=== PATIENT | female | born 1995 | race Caucasian/White ===

== ENCOUNTER 2024-10-06 20:50 | Emergency (ER) | payer SELFPAY ==
--- NOTE | ~2024-10-06 | XR_ITS ---
CLINICAL HISTORY: swelling, pain 2 view right forearm Comparison: None Findings: No acute fractures or dislocations. No cortical destruction of the bone. No radiopaque foreign body. IMPRESSION: 1. No acute fracture or dislocation injury identified at the right forearm. This document has been electronically signed by: Fredrick Aguirre MD on 10/06/2024 21:47:16
[2024-10-06 20:52] VITALS: BP 133/82; PULSE 83; RESP 16; TEMP 36.9; O2SAT 100; BMI 26.6
--- NOTE | 2024-10-06 20:57 | ED_ITS ---
HPI - General Adult General Chief complaint: Extremity Problem Stated complaint: right arm feels swollen/agusto Related Data Allergies Allergy/AdvReac Type Severity Reaction Status Date / Time Penicillins Allergy Hives Verified 10/06/24 20:55 [facility] Social History Social History Advance Directives: No Advance Directives Information Provided: No Do you have a plan to hurt others: No Plan Physical Exam ED Vital Signs: Vital Signs - 24 hr 10/06/24 20:52 Temperature 98.4 F Pulse Rate 83 Respiratory Rate 16 Blood Pressure 133/82 Pulse Oximetry 100 Oxygen Delivery Method Room Air BMI result Body Mass Index 26.6 Course Course Course Narrative: RME performed by Kamille Rosales PA-C. Patient is a 29 year old assigned female at presenting to the emergency department with right forearm swelling. Patient states she feels as though her right forearm is swollen. Patient's limited physical exam performed in triage showed a non-toxic indivi dual with a normal appearing right forearm. Detailed physical exam and review of systems are deferred to the software quality specialist. Imaging ordered. Patient placed back in the waiting room pending room availability and results. Patient left without completing treatment. Patient left the department before myself or any of the other emergency department clinicians could explain to or review with the patient; physical exam findings, test results, need or lack there of for additional testing, need or lack there of for a procedure to be performed, need or lack there of for hospital admission / transfer, need or lack there of for prescription medication, treatment options, or a treatment plan. Discharge Plan Discharge Clinical Impression: Right forearm pain Patient Disposition: Left W/O Completing Treatment Discharge Date/Time: 10/06/24 23:41
--- OUTSIDE RECORDS SUMMARY | 2024-10-06 23:38 | XMS_ITS | Data Portability ---
Author Organization [facility] Dick [facility] [employer], svmg_admin Address [address] [place] [id number] Assessment No assessment recorded. Plan of Treatment Reminders Order Date Submit Date Provider Last Modified By Organization Details Last Modified Time Details Appointments None recorded. Lab urinalysis complete, reflex culture 2018 019 [email or web address] [facility] (Lab), [address] [place] [address], [phone], 9 12:36:57 HbA1c (hemoglobin A1c), blood 2018 019 MICHAEL [facility] (Lab), [address] [place] [address], [phone], 9 14:58:31 lipid panel, serum 2018 019 astrub Not available 0 12:51:16 CMP, serum or plasma 2018 019 astrub Not available 0 12:51:16 CBC 2018 019 astrub Not available 9 10:45:14 TSH, serum, reflex free T4 2018 019 astrub Not available 0 12:51:16 HIV (1+2) antibodies, EIA, serum, reflex HIV-1 western blot (WB) 2018 019 astrub Not available 9 10:45:14 hepatitis C virus Ab, serum 2018 019 astrub Not available 9 10:45:15 CT + NG RNA, urine 2018 019 astrub Not available 9 10:45:15 vitamin D, 25-hydroxy, total, serum 2018 019 astrub Not available 0 12:51:16 Referral gynecologis t referral 2018 019 [email or web address] Not available 0 13:10:55 Procedures None recorded. Surgeries None recorded. Imaging US, duplex, venous, upper extremity, unilateral 2018 019 [facility] Radiology (Imaging Scheduling), [address] [facility], Radiology [address], [place], [address], 9 16:10:14 Medication Orders Aviane 0.1 mg-20 mcg tablet 2018 019 [email or web address] [facility], [address], [place], [id number], 9 11:40:15 albuterol sulfate 90 mcg/actuati on breath activated powder inhaler 2018 019 [facility], [address], [place], [id number], 9 11:40:10 fluticasone propionate 50 mcg/actuati on nasal spray,suspe nsion 2018 019 [email or web address] [facility], [address], [place], [id number], 9 10:50:22 Junel FE / (28) 1 mg-20 mcg (21)/75 mg (7) tablet 2018 019 [email or web address] [facility]76159, [address], [place], [id number], 9 10:50:31 bupropion HCl SR 150 mg tablet,12 hr sustained-r elease 2018 019 [email or web address] [facility] #80776, [address] [facility], [place], [place], [id number], 9 11:12:15 Patient TargetsNo targets recorded. Patient Instructions Encounter Date Encounter Id Patient Instructions Last Modified By Organization Details Last Modified Time 07/13/2018 [id number] A healthy lifestyle: care instructions dderderian Not available 07/15/2018 13:02:49 learning about control: combination pills dderderian Not available 07/13/2018 13:39:21 Well Visit, Ages 18 to 65: Care Instructions dderderian Not available 07/13/2018 13:39:20 safer sex: care instructions dderderian Not available 07/13/2018 13:45:37 Quitting Tobacco: Care Instructions dderderian Not available 07/13/2018 13:39:20 Bupropion daily for three days then increase to twice a day; Set an absolute quit date of July 28; Start a vacation fund with the cigarette money; [facility] ; Fasting labs; Please continue to eat healthy and exercise regularly; drink at least 60 ounces of water daily; Call with any questions or concerns dderderian Not available 07/15/2018 12:57:58 09/07/2018 [id number] Quitting Tobacco: Care Instructions dderderian Not available 09/07/2018 11:38:32 controlling your asthma: care instructions dderderian Not available 09/07/2018 11:38:32 learning about asthma dderderian Not available 09/07/2018 11:38:32 When You Want to Lose Weight: Care Instructions dderderian Not available 09/07/2018 11:38:32 Acute Sinusitis: Care Instructions dderderian Not available 09/07/2018 11:38:32 Start Mucinex (generic) and steroid nasal spray; claritin 10 mg daily as needed for allergy symptoms; Keep up the good work with smoking cessation; Keep working with your marine mammal trainer; Please continue to eat healthy and exercise regularly; drink at least 60 ounces of water daily; Call with any questions or concerns dderderian Not available 09/09/2018 00:52:16 12/08/2018 [id number] frequent urination: care instructions dderderian Not available 12/08/2018 11:39:11 learning about control: combination pills dderderian Not available 12/08/2018 11:39:11 Lab ordered today and from 07/13/18; urine when you do not have your period; Please continue to eat healthy and exercise regularly; drink at least 60 ounces of water daily; Call with any questions or concerns dderderian Not available 12/10/2018 22:41:40 01/15/2019 [id number] Quitting Tobacco: Care Instructions dderderian Not available 01/15/2019 11:52:10 ultrasound today of your right arm dderderian Not available 01/15/2019 11:53:03 06/19/2019 [id number] Quitting Tobacco: Care Instructions dderderian Not available 06/21/2019 20:47:26 Please check out this website for tips for success and support: www.cdc.gov/toba corporate accounting manager/campaign/tip s/quit-smoking/ Please continue to eat healthy and exercise regularly; drink at least 60 ounces of water daily; Call with any questions or concerns dderderian Not available 06/19/2019 14:54:45 Reason for Referral [employer] Referral for Us oral contraception Referring Physician: Pari Ray, Internal Medicine, Encounter Date: 12/08/2018 Results Created Date Observation Date Name Description Value Unit Range Abnormal Flag Note LastModifiedBy Organization Detail LastModifiedTime 12/09/1912/08/2018 HbA1c (hemo globi n A1c), blood HGB A1C 5.4 % 4.8-5. 9 Hemog lobin A1c (%) Degre e of gluco se contr ol Great er than 8 Addit ional actio n sugge sted Less than 7 Diabe tic thera peuti c goal Less than 6 Non-d iabet ic level Not Available [facility] (Lab) [address] [facility], [place], [address], 12/08/2018 14:58:30 12/09/1912/08/2018 HbA1c (hemo globi n A1c), blood est avg glucose 108 <148 Estim ated avera ge gluco se level for the previ ous 3 month perio d. Not Available [facility] (Lab) [address] [place] [address], [phone], 12/08/2018 14:58:30 12/09/19 19 12/08/2018 HbA1c (hemo globi n A1c), blood note Patie nt accou nt numbe r: [id number] Order ing physi jac: Josette burkett, Markus mcneill S Other provi ders: Markus burkett, , , , Markus burkett, , Not Available [facility] (Lab) [address] [place] [address], [phone], 12/08/2018 14:58:30 01/18/20 19 01/15/2019 US, duple x, venou s, upper extre mity, unila teral [facility] [address] [place] [address] Phone: [phone] Fax: [phone] Patien t Name: Nigel PANDEY [facility] 6581 Referr ing Physic sonya: Cowan DO Date of : Primar y Physic sonya: Cowan DO Sex: F Test Date: Histor y: Note: OP Indica tions: right arm pain, numbes s and swelli ng Venous Duplex Scan Report (Upper Extrem ity) Right Left Patenc y Thromb us Imaged Patenc y Thromb us Imaged Int. Jugula r PATENT NO Subcla vian PATENT NO PATENT NO Axilla ry PATENT NO Brachi al PATENT NO Basili c PATENT NO Cephal ic PATENT NO Radial PATENT NO Ulnar PATENT NO Surger y Histor y: Impres sions: The right upper extrem ity appear s negati ve for deep vein thromb osis. All visual ized veins demons trate compre ssion, respir atory phasic ity and augmen tation . The contra latera l subcla vian vein was imaged and is free of thromb us. Final Commen ts: Result s Called To: Result s were called to Nanette at Dr. Consuelo hassan's office at 4:20pm . Physic sonya: Mitchell Ahmadi MD ([facility]) Techno logist : Sridevi Clayton Report Date: Report Status : Signed Comple renae Date: Orderi ng physic sonya: Charlette hassan Other provid ers: Charlette hassan, Charlette hassan, , Charlette hassan, , , dderderian [facility] Radiology (Imaging Scheduling) [address] [place] [address] Radiology [facility], [place], [address], 07/07/2019 09:44:37 Result Notes None recorded. Problems Name Problem SNOMED Code Status Onset Date Resolution Date Notes Provider Name and Address Organization Details Recorded Time Vitamin D deficiency 36611898 Active 2016 Pari Ray DO [address] [place] [address], [phone], [facility] 7 14:34:02 Asthma 527003783 Active 2016 Pari Ray DO [address] [place] [address], 6, [facility] 7 14:34:03 Adult health examination Active 2018 no pap on file from [employer] fall 2018 Pari Ray DO [address] [place] [address], 6, [facility] 9 17:06:55 Nicotine dependence 17254863 Active 2018 Pari Ray DO [address] [place] [address], 6, [facility] 9 12:57:35 Uses oral contraception 3808134 Active 2018 Pari Ray DO [address] [place] [address], 6, [facility] 9 12:57:37 Overweight 085483520 Active 2018 Pari Ray , DO [address] [place], [address], [facility] 9 13:02:50 Sinusitis 10764266 Active 2018 Pari Ray , DO [address] [place], [address], [facility] 9 00:51:32 Increased frequency of urination 722306591 Active 2018 Pari Ray , DO [address] [place], [address], [facility] 22:40:42 Family history of diabetes mellitus type 2 243143800 Active 2018 Pari Ray , [address], [address], [facility] 9 22:41:02 Difference in symmetry 777381537 Active 2019 Pari Ray , [address] [place], [address], [facility] 0 09:44:22 Problem Notes None recorded. Procedures Surgical History Date Name Laterality Status Provider Name and Address Organization Details Recorded Time Tooth root removal completed Haydee Blancas [facility] 03/30/2017 13:40:44 Imaging Results Imaging Date Name Status LastModified by Organiz ation Details LastModified Time 01/15/2019 US, duplex, venous, upper extremity, [facility] [address] [place] [address] Radiology [facility], [place], [address], 07/07/2019 09:44:37 Procedure Notes None recorded. Medical Equipment None Reported. Allergies Allergen ID Allergen Name Allergen Category Reaction Reaction Severity Criticality Documentation Date Start Date Code Code System Note Provider Name and Address Organization Details Recorded Time 487212 amoxicill in medicatio n hives moderate Not available 03/30/2017 723 RxNorm infan cy CATRACHITA [facility]. 7 13:31:13 Medications Name Sig Start Date Stop Date Status Note LastModified by Organization Details LastModified Time bupropion HCl SR 150 mg tablet,12 hr sustained-r elease Take 1 tablet twice a day by oral route. 09/07 completed Not Available Not Available Not Available Aviane 0.1 mg-20 mcg tablet Take 1 tablet every day by oral route. 01/15 completed Not Available Not Available Not Available Microgestin FE 06/18 (28) 1 mg-20 mcg (21)/75 mg (7) tablet TK 1 T PO QD 12/08 completed Not Available Not Available Not Available albuterol sulfate HFA 90 mcg/actuati on aerosol inhaler Inhale 2 puffs every 4 hours by inhalatio n route as needed. active Not Available Not Available No t Available fluticasone propionate 50 mcg/actuati on nasal spray,suspe nsion USE 1 SPRAY IN EACH NOSTRIL EVERY DAY as needed 12/08 completed Not Available Not Available Not Available Flovent HFA 44 mcg/actuati on aerosol inhaler 06/21 completed Not Available Not Available Not Available Flovent HFA 110 mcg/actuati on aerosol inhaler Inhale 1 puff twice a day by inhalatio n route. 07/13 completed Not Available Not Available Not Available multivitami n one tab daily 01/15 completed Not Available Not Available Not Available Microgestin FE 06/18 (28) 07/13 completed Not Available Not Available Not Available albuterol sulfate 90 mcg/actuati on breath activated powder inhaler Inhale 2 puffs every 4 hours by inhalatio n route as needed. 01/15 completed Not Available Not Available Not Available Qvar RediHaler 40 mcg/actuati on HFA breath activated aerosol INHALE 2 PUFFS PO BID 01/15 completed Not Available Not Available Not Available Vitals Date Recorded Body height Heart rate Oxygen saturation Oxygen saturation in Arterial blood by Pulse oximetry Respiratory rate Body mass index (BMI) Body weight Systolic blood pressure Diastolic blood pressure Provider Name and Address Organization Details Last Updated DateTime 9 162.56 cm 70 /min 98 % 98 % 17 /min 28.8 kg/m2 85754.5 2 g 111 mm[Hg] 76 mm[Hg] Lawanda Weller [facility] 9 13:08:19 Date Recorded Body height Oxygen saturation Oxygen saturation in Arterial blood by Pulse oximetry Respiratory rate Heart rate Body mass index (BMI) Body weight Systolic blood pressure Diastolic blood pressure Provider Name and Address Organization Details Last Updated DateTime 9 162.56 cm 94 % 94 % 16 /min 109 /min 29.2 kg/m2 06816.4 g 94 mm[Hg] 66 mm[Hg] Lawanda Weller [facility]. 9 11:15:17 Date Recorded Body height Body mass index (BMI) Body weight Heart rate Respiratory rate Oxygen saturation Oxygen saturation in Arterial blood by Pulse oximetry Pain severity - 0-10 verbal numeric rating [Score] - Reported Systolic blood pressure Diastolic blood pressure Provider Name and Address Organization Details Last Updated DateTime 9 162.56 cm 29.2 kg/m2 83676.7 g 83 /min 15 /min 100 % 100 % 0 113 mm[Hg] 69 mm[Hg] Lawanda Weller [facility]. 9 10:52:05 Date Recorded Body height Body mass index (BMI) Body weight Body temperature Heart rate Respiratory rate Oxygen saturation Oxygen saturation in Arterial blood by Pulse oximetry Systolic blood pressure Diastolic blood pressure Provider Name and Address Organization Details Last Updated DateTime 9 162.56 cm 29.9 kg/m2 87176.0 7 g 98.6 [degF] 70 /min 16 /min 96 % 96 % 122 mm[Hg] 87 mm[Hg] Laura Dotson [facility]. 9 11:40:05 Date Recorded Body height Body mass index (BMI) Body weight Respiratory rate Body temperature Heart rate Oxygen saturation Oxygen saturation in Arterial blood by Pulse oximetry Pain severity - 0-10 verbal numeric rating [Score] - Reported Systolic blood pressure Diastolic blood pressure Provider Name and Address Organization Details Last Updated DateTime 0 162.56 cm 30.9 kg/m2 30443.6 3 g 14 /min 98.3 [degF] 95 /min 99 % 99 % 0 130 mm[Hg] 80 mm[Hg] Norma Momin CMA [facility] 0 14:33:52 Social History Question Answer Notes LastModified by Organizat ion Details LastModified Time Tobacco Smoking Status Current Some Day Smoker Pari Ray, DO [address] [place], [address], [facility] 07/07/2019 09:37:19 Do You Have An Advance Directive? No [email or web address] Information not available 03/30/2017 What Is Your Level Of Alcohol Consumption? Moderate 2 Glasses - Weekends [email or web address] Information not available 03/30/2017 What Is Your Level Of Caffeine Consumption? Occasional Information not available 03/30/2017 How Much Tobacco Do You Chew? None [email or web address] Information not available 08/25/2017 What Type Of Diet Are You Following? REGULAR Was Vegan Before Information not available 03/30/2017 Do You Or Have You Ever Used E-cigarettes Or Vape? 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 No [email or web address] Information not available 03/30/2017 Have You Fallen Within The Last 12 Months No [email or web address] Information not available 03/30/2017 If >2 Falls, Or 1 Fall With Serious Injury, Is There An Action Plan In Place? No Information not available 07/13/2018 Have You Barre Down, Depressed, Or Hopeless In The Last 2 Weeks? No [email or web address] Information not available 03/30/2017 Do You Have Little Interest Or Pleasure In Doing Things? No [email or web address] Information not available 03/30/2017 Have You Ever Engaged In Any Behavior That Put You At Risk For Joanna AIDS? No Information not available 03/30/2017 Are You In A Relationship In Which You Have Been Physically Hurt By Your Partner? No Information not available 03/30/2017 How Often Do You Use Sunscreen Sometimes [email or web address] Information not available 03/30/2017 Firearms Present In Home No [email or web address] Information not available 03/30/2017 How Often Do You Wear A Seatbelt Always Information not available 03/30/2017 Do You Ever Feel Afraid Of Your Partner? No Information not available 03/30/2017 When Is The Last Time You Had 4+ Alcoholic Drinks In The Same Sitting 1 Week Information not available 03/30/2017 Illicit Or Recreational Drugs No [email or web address] Information not available 03/30/2017 Do You Take Daily Aspirin No [email or web address] Information not available 03/30/2017 Marital Status Single Informatio n not available 03/30/2017 What Was The Date Of Your Most Recent Tobacco Screening? 06/19/2019 [email or web address] Information not available 06/19/2019 How Many Children Do You Have? 0 [email or web address] Information not available 03/30/2017 Are You Sexually Active? Yes Information not available 03/30/2017 Number Of Sexual Partners 1 [email or web address] Information not available 03/30/2017 Smoke Alarm In Home Yes [email or web address] Information not available 03/30/2017 Do You Or Have You Ever Used Smokeless Tobacco? Never Used Smokeless Tobacco [email or web address] Information not available 01/15/2019 How Much Tobacco Do You Smoke? No Information not available 09/07/2018 General Stress Level Low [email or web address] Information not available 03/30/2017 Sex: Unknown Functional Status Question Answer Note LastModified by Organizat ion Details LastModified Time What is your exercise level? Occasional tennis; walks at work; has gym membership rare though >>woking with a personal shopper 09/15 [email or web address] Information not available 03/30/2017 Mental Status None recorded. Family History Relationship Description Onset Age of this Age Resolved Age Notes LastModified by Organization Details LastModified Time Maternal Grandmother Diabetes mellitus alive dderderian Not available 07/13 13:29:57 Mother Asthma dderderian Not available 03/30/2017 13:56:27 Father Asthma dderderian Not available 03/30/2017 13:56:33 Sister Asthma has three sister s dderderian Not available 03/30/2017 13:56:50 Maternal Grandfather No current problems or disability dderderian Not available 06/30 13:30:12 Paternal Grandfather No current problems or disability dderderian Not available 06/30 13:30:12 Paternal Grandmother No current problems or disability dderderian Not available 06/30 13:30:12 Notes:no breast, ovarian or colon ca, no melanoma, no cad or sudden Medical History Condition Response HIV or AIDS N Seizure Disorder N AFib (Atrial Fibrillation) N Kidney Stones N Hyperthyroidism N Heart Arrhythmia N Back/Neck Pain N Glaucoma N Depression N Sleep Problems N Hypothyroidism N Renal disease N Frequent Falls N Has Pacemaker N CHF (Congestive Heart Failure) N Obstructive Sleep Apnea N Peripheral Neuropathy N Anxiety Disorder N Dizziness N Obesity Y Arthritis N Heart Attack (Myocardial Infarction) N Hot Flashes N Cancer N Blood in Stool N Urinary Problem N Diverticulitis (Inflammation of the lona l) N ADHD N Headache N Shortness of Breath N Allergy Symptoms Y Stroke/TIA N Hypercholesterolemia N Aortic Aneurysm N Liver Disease N Organ Transplant N Change in Periods Y Dialysis N Fibromyalgia N Aortic stenosis N Kidney Disease N Hiatal Hernia N DVT/PE N Osteoarthritis N Fatigue N Orthostasis N Deep Vein Thrombophlebitis N Parkinson's disease N Joint Pain N Blood Clot (Deep Vein Thrombosis) N Anemia N Cough N Chest Pain N Heartburn N Abdominal Pain N Pulmonary Embolism (Blood Clot in the Leydi ng) N Gait Instability N Ulcers N Peripheral Vascular Disease (PVD) N Bleeding Disorder/DVT N Abdominal Surgery N Leg Swelling N Monoclonal Gammopathy N Diabetes N Difficulty swallowing N Cataracts N Palpitations N Osteopenia/Osteoporosis N Heart Murmur N Tuberculosis N Vitamin D deficiency N BPH N Dementia N Asthma Y Weight Gain / Loss +/- 10 lbs N COPD (Chronic Obstructive Pulmonary Dise ase) N GERD/Reflux N Hepatitis N Other Disease(s): N Chronic Pain Disorder N No Past Medical Problems Reported N Meniere's Disease N Chronic Ear Infections N CAD (Coronary Artery Disease) N Change in Bowels N Nasal Polyps N Gynecological History Statement/Question Response History of Endometriosis N Flow Light Date of LMP 04/21/2019 History of polycystic ovarian disease N Date of last pap 01/2018 History of infertility N Duration of Flow (days) 4 Do you perform routine breast exams? Y Age at Menarche 16 Current Control Method BCPs Vaginal discharge N Menses Monthly Y Number of Pregnancies? 0 History of Abnormal Pap Smear? N LMP Definite History of frequent UTI N Obstetrics History GPAL:G 0 P 0 0 0 0 Immunizations Vaccine Type Date Status Note Provider Placido grimm and Address Organization Details Recorded Time Tdap 07/13/2018 completed Not Available [employer] 06/16/2019 02:12:34 Past Encounters Encounter ID Performer Location Encounter Start Date Encounter Closed Date Diagnosis/Indication Diagnosis SNOMED-CT Code Diagnosis ICD10 Code Diagnosis Note [id number] Pari Ray DO [facility] [address] [place] [address] 03/30/2017 13:19:07 03/30/2017 14:29:22 Adult health examination 625978435 Z00.00 21 yo healthy female with PMHx asthma only requiring albuterol prn. 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 for next refill does not want respimat b/c was $50 [id number] Pari Ray DO [facility] [address] [place] [address] 08/25/2017 11:27:03 08/25/2017 12:12:04 Asthma 641641973 J45.909 albuterol prn; went to urgent care last month b/c did not have a prn inhaler. for next refill does not want respimat b/c was $50Discuss ed needs additional steroid inhaler to decrease inflammati on in lungs; will take for 2 more weeks - if still coughing will go another two; if persistant need for flovent will let me know; encouraged adding humidifier since morning symptoms [id number] Pari Ray DO [facility] [place] [place] [address] [place] [address] 07/13/2018 12:43:57 07/13/2018 13:54:14 Nicotine dependence 98337933 F17.200 pack - three per week social driving nervous smoked 15-20 started up daily rx bupropion - urged need to quit / is on ocp's Bupropion daily for three days then increase to twice a day; Set an absolute quit date of July 28; Start a vacation fund with the cigarette money; f/u in august Uses oral contraception 1585368 Z30.41 off ocp since mar - had been written by clinic at school and ran out of refills... .did not know i could fill will restart Active or passive immunization 354783296 Z23 Adult heal th examination 321705297 Z00.00 Tdap 07/13/18den tist - referral to rhea grimm She is here for her CPE. Encouraged seeing eye doctor and dentist regularly. PAP is up to date - calling for report (hiv, hep c and gc/c testing ordered today). Will get fasting labs. Immunizati ons as noted. Discussed the importance of eating a healthy diet and exercises regularly. Follow up annually. Vitamin D deficiency [id number] E55.9 Overweight [id number] E66 .02 jul 2018 bmi 28.8 - discussed healthy eating (no longer a vegan/vege tarian) and exercise - starting bupropion for smoking cessation which can help with weight loss or at least not gaining with smoking cessation; f/u in august for smoking and sury [id number] Pari Ray DO [facility] [address] [place] [address] 09/07/2018 11:02:03 09/07/2018 11:41:03 Sinusitis [id number] J32.9 now barrientos - achy --now hafreezing using inhaler pressure face freezing using inhaler pressure facediscus sed use of fluticason e, Adair saling gelStart Mucinex (generic) and steroid nasal spray; claritin 10 mg daily as needed for allergy symptoms; Keep up the good work with smoking cessation; Keep working with your marine mammal trainer Nicotine dependence [phone] F17.200 pack - 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 Overweight [id number] E66 .02 jul 2018 bmi 28.8 - discussed healthy eating (no longer a vegan/vege tarian) and exercise - starting bupropion for smoking cessation which can help with weight loss or at least not gaining with smoking cessation; f/u in august for smoking and sury august 2018 bmi 29.2; 170 - starting to work with a personal shopper next week Asthma [id number] J45.90 9 albuterol prn; went to urgent care last month b/c did not have a prn inhaler. for next refill does not want respimat b/c was $50april 2018 - sent generic albuterol inhaler; claritin 10 mg daily as needed for allergy symptoms [id number] Pari Ray, DO [facility] [address] [place] [address] 12/08/2018 10:36:35 12/08/2018 11:41:24 Increased frequency of urination [id number] R35.0 wonders if she has dm voids a lotwill get a1c and urine Family his tory of diabetes mellitus type 2 [id number] Z83.3 wonders if she has dm voids a lot will get a1c and urine Uses oral contraception 5052307 Z30.41 off ocp since mar - had been written by clinic at school and ran out of refills... 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 - would like to go in the fall and try another ocp in the meantime rx aviane sent - has menses now so will start this weekend/pace nday [id number] Pari Ray, DO [facility] [address] [place] [address] 01/15/2019 10:57:22 01/15/2019 12:04:33 Edema of the upper extremity [id number] R60.0 right arm felt weird urgent care going numb and tingling through fingers weird blue tiny ceing right arm is larger over all no neck pain smoker- few cigarettes every few days is not on ocp no palpable cord; will get duplex us - heading off on vacation tomorrowad vised smoking cessation Nicotine dependence [phone] F17.200 pack - 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 dec 2018 still smoking few cigs every few days - urged cessation [id number] Pari Ray DO [facility] [address] [place] [address] 06/19/2019 14:23:42 06/19/2019 15:26:15 Nicotine dependence [id number] F17.200 pack - 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 dec 2018 still smoking few cigs every few days - urged cessation may 2019 -. Please check out this website for tips for success and support: www.cdc.go v/tobacco/ campaign/t ips/quit-s moking/ Difference in symmetry [id number] R92.06 jun 2019 no one can see difference but she feels the difference sleeves tighter on right feels through upper flank/back dull pain at times full rom feels swollen right handed right upper arm measures just over 1/4 larger than the left; no erythema discussed that the asymmetry is likely normal given she is right handed; low risk of a clot and exam and history to not increase suspicion; advised to er if erythema or pain; or difference increases further Health Concerns Section Related Observation LastModified by Organization Detai ls LastModified Time None Recorded Concern Status LastModified by Organization Details LastModified Time None Recorded Advance Directives Directive N: Payers Encounter Date Sequence Insurance Name Policy Number Policy Chin Covered Member ID Chin Member ID Guarantor Name 07/13/2018 1 [facility] [id number] Sander Lyon Robitaille [id number] Kathiren Robitaille 09/07/2018 1 [facility] [id number] Sander Lyon Robitaille [id number] Kathiren Robitaille 12/08/2018 1 [facility] [id number] Sander Lyon Robitaille [id number] Kathiren Robitaille 01/15/2019 1 [facility] [id number] Sander Lyon Robitaille [id number] Kathiren Robitaille 06/19/2019 1 [facility] [id number] Sander Lyon Robitaille [id number] Kathiren Robitaille Notes Date Note Type Note Provider Name and Address Organization Details Recorded Time 07/13/19 19 text/ht ml here for cpepack - three per weeksocialdrivingnervoussmoked 15-20started up daily off ocp since nov - had been written by clinic at school and ran out of refills....did not know i could fillwill restart Pari Ray, [address] [place] [address], [phone], [facility] 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 12/10/2018 22:42:10 01/16/20 19 text/ht ml right arm felt weirdurgent caregoing numb and tingling through fingers weird blue tiny ceingright arm is larger over all no neck pain smoker- few cigarettes every few daysis not on ocp Pari Ray, DO [address] [place], [address], [facility] 01/16/2019 01:34:21 06/19/19 20 text/ht [place] over the summerwanted to be seen one more time and thank me no one can see differencebut she feels the differencesleeves tighter on rightfeels through upper flank/backdull pain at timesfull romfeels swollenright handed Pari Ray, DO [address] [place], [address], [facility] 07/07/2019 09:44:50 OBGyn Episode No OBEpisode recorded.
== END 2024-10-06 23:41 | disposition left against medical advice (07) ==
PROVIDERS: Emergency Provider Emergency Medicine
DX: M79.601 Pain in right arm (principal)
CPT/HCPCS: 73090; 99281; 99283

== ENCOUNTER → 2024-10-06 20:57 | Outpatient (BNV) | payer OTHER, SELFPAY | PROVIDERS: Visit Provider Radiology Diagnostic Radiology | DX: M79.631 Pain in right forearm (principal); R22.31 Localized swelling, mass and lump, right upper limb | CPT/HCPCS: 73090 ==